=== PATIENT | male | born 1945 | race Caucasian/White ===

== ENCOUNTER 2018-12-07 11:32 | Emergency (ER) | payer OTHER | END 2018-12-07 14:57 | disposition home or self-care (01) | LOC: EDH 11:32 | DX: S16.1XXA Strain of muscle, fascia and tendon at neck level, initial encounter (principal); S50.01XA Contusion of right elbow, initial encounter; Z98.890 Other specified postprocedural states; V09.9XXA Pedestrian injured in unspecified transport accident, initial encounter; Y93.89 Activity, other specified; Y92.89 Other specified places as the place of occurrence of the external cause; Y99.8 Other external cause status | CPT/HCPCS: 70450; 72125; 72128; 73080 ==

== ENCOUNTER 2019-01-16 19:49 | Inpatient (IN) | payer OTHER ==
[~2019-01-16] VITALS: Ht 175.3 cm; Wt 74.0 kg
[~2019-01-16 19:49] MED LIST: AMLO5TAB4 PO; ASPI-1005 PO; CLOP75TA14 PO; L.AC1CAP6 PO; LISI10TA7 PO; SIMV20TA2 PO
[2019-01-16 20:30] LABS: BASOPHILS % (AUTO) 0.2 % (0.0-5.0); EOSINOPHILS % (AUTO) 2.2 % (0.0-8.0); HEMATOCRIT 47.3 % (42-54); MEAN CORPUSCULAR HGB CONC 34.4 g/dL (32.0-36.0); MEAN CORPUSCULAR VOLUME 93.1 fL (79-99); MONOCYTES % (AUTO) 11.7 % (3.0-13.0); NEUTROPHILS % (AUTO) 62.9 % (40.0-77.0); PLATELET COUNT (AUTO) 201 K/uL (130-400); RED BLOOD CELL COUNT(AUTO) 5.08 MIL/uL (4.50-6.20); RED CELL DISTRIBUTION WIDTH 12.6 % (11.0-15.5); WHITE BLOOD COUNT (AUTO) 9.8 K/uL (4.8-10.8)
[2019-01-16 20:43] LABS: CREATININE 0.9 mg/dL (0.5-1.5); POTASSIUM 3.7 mmol/L (3.5-5.1)
[2019-01-16 20:45] LABS: INR 1.02 (0.85-1.15); PROTHROMBIN TIME 10.7 SEC (9.6-11.6)
[2019-01-16 20:47] LABS: ALBUMIN 3.4 g/dL (3.5-5.0); BILIRUBIN,TOTAL 0.5 mg/dL (0.2-1.0); TOTAL PROTEIN, SERUM 7.3 g/dL (6.0-8.3)
[2019-01-16 23:39] LABS: APPEARANCE,URINE Cloudy (CLEAR); BILIRUBIN,URINE Small (NEGATIVE); COLOR,URINE Dark Yellow (YELLOW); GLUCOSE, URINE (UA) Negative (NEGATIVE); KETONES,URINE Trace mg/dL (NEGATIVE); LEUKOCYTE ESTERASE ,URINE Trace (NEGATIVE); NITRATE,URINE Negative (NEGATIVE); OCCULT BLOOD,URINE Negative (NEGATIVE); PROTEIN,URINE POS 1+ mg/dL (NEGATIVE)
[2019-01-16 23:47] LABS: AMPHET/METH SCREEN,URINE NEGATIVE (NEGATIVE); BARBITURATE SCREEN, URINE NEGATIVE (NEGATIVE); BENZODIAZEPINES SCREEN,URINE NEGATIVE (NEGATIVE); CANNABINOID SCREEN,URINE NEGATIVE (NEGATIVE); COCAINE SCREEN,URINE NEGATIVE (NEGATIVE); OPIATE SCREEN,URINE NEGATIVE (NEGATIVE); PHENCYCLIDINE SCREEN,URINE NEGATIVE (NEGATIVE)
[2019-01-16 23:49] LABS: BACTERIA,URINE Few /HPF (None Seen); MUCUS,URINE Many LPF (None Seen); RBC,URINE 0-1 /HPF (0-1); SQUAMOUS EPITHELIAL CELL,UR Moderate /HPF (0-2)
[2019-01-17] VITALS (7 sets, daily range): BP systolic 110–147; BP diastolic 50–72
--- NOTE | 2019-01-17 00:45 | NUR ---
ADMISSION NOTE: Admitted to floor per stretcher from ER. AOx3. Can amb with cane. Denies feeling of discomfort at this time. Positioned in bed comfortably. VS checked and recorded. Assessment done ( See CPOE flow chart for full assessment) Oriented to room and use of call light. Policies and procedures explained. Verbalized understanding. Plan of care initiated. Attached to Telemetry with SR 60's. NVS q4hrs and stroke assessment initiated per protocol. Has IV site to LFA #20 gauge , SL - patent and intact. Pt. kept monitored and observed for any unusualities. Cared for and needs attended.
[2019-01-17 04:00] LABS: CREATINE KINASE, TOTAL 27 U/L (21-232); MYOGLOBIN 47 ng/mL (10-92); TROPONIN I < 0.04 ng/mL (0.00-0.06)
[2019-01-17] MEDS: NITROGLYCERIN 1GM/1 INCH PACKET TD SCH ×3 (06:00→17:47)
[2019-01-17] MEDS: LACTOBACILLUS RHAMNOSUS GG 1 EACH CAP.SPRINK PO SCH (09:21)
[2019-01-17] MEDS: CLOPIDOGREL BISULFATE 75 MG TAB PO SCH (09:21)
[2019-01-17] MEDS: ASPIRIN 325 MG TABLET PO SCH (09:22)
[2019-01-17] MEDS: AMLODIPINE BESYLATE 5 MG TAB PO SCH (09:23)
[2019-01-17] MEDS: LISINOPRIL 10 MG TABLET PO SCH ×2 (09:23→21:16)
[2019-01-17 09:50] LABS: CREATINE KINASE, TOTAL 28 U/L (21-232); MYOGLOBIN 47 ng/mL (10-92); TROPONIN I < 0.04 ng/mL (0.00-0.06)
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
--- NOTE | 2019-01-17 11:24 | NUR ---
DCP CM met with pt discussed dc plans. Pt states he does everything by himself, independent prior to admission, lives at [facility], pt states he's homeless, daughter Abbey Bazan lives in [place] and would like his daughter to come picker packer pt or he can also call his friend pt unable to give friend's phone#. Denies any equipments/services. Offered possible short term placement rehab, at this time pt declined. States he does not want to go to any facility. CM to call daughter to [facility] regarding possibly picking up pt as per pt request. DC plan w/daughter vs [facility] and [facility] vs SNF. CM to cont to follow up. Addendum: 01/17/19 at 1129 by SAMREEN GROSSMAN LVN CM Amended: Links added.
--- NOTE | 2019-01-17 13:07 | NUR ---
CM Note: [facility] pending ins auth and acceptance CM met with pt again as per request. Pt decided he would like to try rehab after hospital. MELINA signed for [facility]. Faxed order, clinicals, PASRR, confirmation received. Spoke to Helga lopez/[facility], will come eval pt. aware poss dcp 48-72hrs, Dr Andino wanted repeat MRI for Tuesday, also made aware pt pending PT eval and treat, will fax notes as soon as available. Pt pending ins auth and acceptance. Primary nurse aware. CM to cont to follow up.
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
--- NOTE | 2019-01-17 17:57 | NUR ---
REPORT GIVEN TO CHELSEA YAO IN PCCU UNIT. PATIENT AWAKE AND ALERT, VOICES NO COMPLAINTS. Addendum: 01/17/19 at 1814 by HAMLET LOPEZ LVN CORRECTION. KODY YAO
[2019-01-17] MEDS: SIMVASTATIN 20 MG TABLET PO SCH (21:16)
[2019-01-18] MEDS: NITROGLYCERIN 1GM/1 INCH PACKET TD SCH ×4 (00:08→18:00)
[2019-01-18 03:40] VITALS: BP 114/49
[2019-01-18 03:51] LABS: BASOPHILS % (AUTO) 0.4 % (0.0-5.0); HEMATOCRIT 42.2 % (42-54); LYMPHOCYTES % (AUTO) 20.6 % (21.0-51.0); MEAN CORPUSCULAR HEMOGLOBIN 32.2 pg (27.0-33.0); MEAN CORPUSCULAR HGB CONC 34.6 g/dL (32.0-36.0); MEAN CORPUSCULAR VOLUME 92.9 fL (79-99); MONOCYTES % (AUTO) 11.1 % (3.0-13.0); NEUTROPHILS % (AUTO) 64.9 % (40.0-77.0); PLATELET COUNT (AUTO) 219 K/uL (130-400); RED BLOOD CELL COUNT(AUTO) 4.54 MIL/uL (4.50-6.20); RED CELL DISTRIBUTION WIDTH 12.9 % (11.0-15.5); WHITE BLOOD COUNT (AUTO) 9.2 K/uL (4.8-10.8)
[2019-01-18 04:03] LABS: CREATININE 1.1 mg/dL (0.5-1.5); POTASSIUM 3.7 mmol/L (3.5-5.1)
[2019-01-18 07:35] VITALS: BP 102/46
[2019-01-18] MEDS: LACTOBACILLUS RHAMNOSUS GG 1 EACH CAP.SPRINK PO SCH (08:08)
[2019-01-18] MEDS: AMLODIPINE BESYLATE 5 MG TAB PO SCH (08:08)
[2019-01-18] MEDS: LISINOPRIL 10 MG TABLET PO SCH ×2 (08:10→21:10)
[2019-01-18] MEDS ORDERED: ASPIRIN 325 MG TABLET ONE (09:10)
--- NOTE | 2019-01-18 09:36 | NUR ---
DYSPHAGIA EVAL COMPLETED. -S/S OF ASPIRATION/PENETRATION OBSERVED. RECOMMEND MECHANICAL SOFT CHOPPED AND THIN LIQUIDS; PILLS WHOLE WITH LIQUID. Addendum: 01/18/[address] SAR[address]H SANTIAGO Amended: Links added.
[2019-01-18] MEDS: ASPIRIN 325 MG TABLET PO SCH (10:27)
[2019-01-18 11:35] VITALS: BP 104/51
[2019-01-18] MEDS: CEFTRIAXONE SODIUM 1 GM IVP SCH (11:40)
[2019-01-18 15:19] VITALS: BP 121/54
[2019-01-18 19:02] VITALS: BP 161/73
[2019-01-18] MEDS: SIMVASTATIN 20 MG TABLET PO SCH (21:10)
[2019-01-18 23:33] VITALS: BP 143/59
[2019-01-19] MEDS: NITROGLYCERIN 1GM/1 INCH PACKET TD SCH ×4 (00:52→18:03)
[2019-01-19 03:52] LABS: HEMATOCRIT 45.2 % (42-54); MEAN CORPUSCULAR HGB CONC 34.4 g/dL (32.0-36.0); PLATELET COUNT (AUTO) 223 K/uL (130-400); RED BLOOD CELL COUNT(AUTO) 4.87 MIL/uL (4.50-6.20); RED CELL DISTRIBUTION WIDTH 12.5 % (11.0-15.5); WHITE BLOOD COUNT (AUTO) 12.9 K/uL (4.8-10.8)
[2019-01-19 04:01] LABS: CREATININE 0.8 mg/dL (0.5-1.5); POTASSIUM 3.5 mmol/L (3.5-5.1)
[2019-01-19 04:15] VITALS: BP 142/60
[2019-01-19 07:55] VITALS: BP 148/71
[2019-01-19] MEDS: AMLODIPINE BESYLATE 5 MG TAB PO SCH (09:35)
[2019-01-19] MEDS: LACTOBACILLUS RHAMNOSUS GG 1 EACH CAP.SPRINK PO SCH (09:35)
[2019-01-19] MEDS: LISINOPRIL 10 MG TABLET PO SCH ×2 (09:35→20:32)
[2019-01-19] MEDS: ASPIRIN 325 MG TABLET PO SCH (09:37)
[2019-01-19] MEDS: CEFTRIAXONE SODIUM 1 GM IVP SCH (10:45)
[2019-01-19 11:35] VITALS: BP 145/65
[2019-01-19] MEDS ORDERED: DOCUSATE SODIUM 100 MG CAP PO ONE (15:01)
[2019-01-19 15:02] VITALS: BP 153/64
[2019-01-19 20:01] VITALS: BP 150/67
[2019-01-19] MEDS: DOCUSATE SODIUM 100 MG CAP PO SCH (20:32)
[2019-01-19] MEDS: SIMVASTATIN 20 MG TABLET PO SCH (20:32)
[2019-01-20] VITALS (8 sets, daily range): BP systolic 106–158; BP diastolic 38–78
[2019-01-20 05:31] LABS: HEMATOCRIT 40.7 % (42-54); MEAN CORPUSCULAR HEMOGLOBIN 32.1 pg (27.0-33.0); MEAN CORPUSCULAR HGB CONC 34.5 g/dL (32.0-36.0); MEAN CORPUSCULAR VOLUME 93.2 fL (79-99); PLATELET COUNT (AUTO) 207 K/uL (130-400); RED BLOOD CELL COUNT(AUTO) 4.36 MIL/uL (4.50-6.20); RED CELL DISTRIBUTION WIDTH 12.4 % (11.0-15.5); WHITE BLOOD COUNT (AUTO) 9.9 K/uL (4.8-10.8)
[2019-01-20 05:49] LABS: CREATININE 0.8 mg/dL (0.5-1.5); POTASSIUM 3.7 mmol/L (3.5-5.1)
[2019-01-20] MEDS: NITROGLYCERIN 1GM/1 INCH PACKET TD SCH ×3 (06:12→11:22)
[2019-01-20] MEDS: LACTOBACILLUS RHAMNOSUS GG 1 EACH CAP.SPRINK PO SCH (07:28)
[2019-01-20] MEDS: DOCUSATE SODIUM 100 MG CAP PO SCH ×2 (07:29→19:42)
[2019-01-20] MEDS: LISINOPRIL 10 MG TABLET PO SCH ×2 (07:29→19:42)
[2019-01-20] MEDS: CEFTRIAXONE SODIUM 1 GM IVP SCH (07:29)
[2019-01-20] MEDS: AMLODIPINE BESYLATE 5 MG TAB PO SCH (07:29)
--- NOTE | 2019-01-20 08:20 | NUR ---
ASSESSMENT PT IS AAOX3 DENIES CP DENIES SOB DENIES NV NO COMPLAINTS, AM MEDS GIVEN. TOLERATED WELL, CALL LIGHT WITHIN REACH.
[2019-01-20] MEDS: CLOPIDOGREL BISULFATE 75 MG TAB PO SCH (08:33)
[2019-01-20] MEDS: ASPIRIN 81MG TAB.CHEW PO SCH (08:34)
--- NOTE | 2019-01-20 11:23 | NUR ---
DENIES CHEST PAIN DOESN'T WANT NITROPASTE
[2019-01-20] MEDS ORDERED: NITROGLYCERIN 0.4 MG SL TAB SL PRN (11:30)
[2019-01-20] MEDS: SIMVASTATIN 20 MG TABLET PO SCH (19:42)
[2019-01-21 00:20] VITALS: BP 143/58
--- NOTE | 2019-01-21 02:56 | NUR ---
Patient a/ox3. Ambulating in room. Denies chest pain. No weakness or deficits with neuro checks.
[2019-01-21 04:18] VITALS: BP 118/58
[2019-01-21 04:31] LABS: HEMATOCRIT 39.3 % (42-54); MEAN CORPUSCULAR HEMOGLOBIN 32.2 pg (27.0-33.0); MEAN CORPUSCULAR HGB CONC 34.8 g/dL (32.0-36.0); MEAN CORPUSCULAR VOLUME 92.5 fL (79-99); PLATELET COUNT (AUTO) 217 K/uL (130-400); RED BLOOD CELL COUNT(AUTO) 4.25 MIL/uL (4.50-6.20); RED CELL DISTRIBUTION WIDTH 12.5 % (11.0-15.5); WHITE BLOOD COUNT (AUTO) 8.1 K/uL (4.8-10.8)
[2019-01-21 04:56] LABS: CREATININE 0.8 mg/dL (0.5-1.5); POTASSIUM 3.4 mmol/L (3.5-5.1)
[2019-01-21] MEDS: DOCUSATE SODIUM 100 MG CAP PO SCH ×2 (07:27→18:15)
[2019-01-21] MEDS: LACTOBACILLUS RHAMNOSUS GG 1 EACH CAP.SPRINK PO SCH (07:27)
[2019-01-21] MEDS: LISINOPRIL 10 MG TABLET PO SCH ×2 (07:27→20:19)
[2019-01-21] MEDS: AMLODIPINE BESYLATE 5 MG TAB PO SCH (07:27)
[2019-01-21] MEDS: CEFTRIAXONE SODIUM 1 GM IVP SCH (07:29)
[2019-01-21] MEDS: CLOPIDOGREL BISULFATE 75 MG TAB PO SCH (07:29)
[2019-01-21] MEDS: ASPIRIN 81MG TAB.CHEW PO SCH (07:29)
[2019-01-21 07:54] VITALS: BP 111/59
--- NOTE | 2019-01-21 08:00 | NUR ---
ASSESSMENT PT IS AAOX3 DENIES CP DENIES SOB DENIES NV NO COMPLAINTS RESTING IN BED. UP TO RESTROOM, NOW IN CHAIR EATING BREAKFAST NO COMPLAINTS. CALL LIGHT WITHIN REACH.
[2019-01-21 11:39] VITALS: BP 136/62
[2019-01-21 15:37] VITALS: BP 141/85
--- NOTE | 2019-01-21 16:30 | NUR ---
STATUS RESTING IN BED, ON THE PHONE WITH DAUGHTER. NO VISIBLE SIGNS OF DISTRESS NOTED. CALL LIGHT WITHIN REACH.
[2019-01-21 19:47] VITALS: BP 138/65
[2019-01-21] MEDS: SIMVASTATIN 20 MG TABLET PO SCH (20:19)
[2019-01-22] VITALS (8 sets, daily range): BP systolic 108–176; BP diastolic 52–80
[2019-01-22] MEDS: LISINOPRIL 10 MG TABLET PO SCH ×2 (09:05→21:00)
[2019-01-22] MEDS: ASPIRIN 81MG TAB.CHEW PO SCH (09:05)
[2019-01-22] MEDS: LACTOBACILLUS RHAMNOSUS GG 1 EACH CAP.SPRINK PO SCH (09:05)
[2019-01-22] MEDS: CLOPIDOGREL BISULFATE 75 MG TAB PO SCH (09:05)
[2019-01-22] MEDS: AMLODIPINE BESYLATE 5 MG TAB PO SCH (09:05)
[2019-01-22] MEDS: DOCUSATE SODIUM 100 MG CAP PO SCH ×2 (09:05→20:43)
[2019-01-22] MEDS ORDERED: POTASSIUM CHLORIDE 20 MEQ ERTAB PO PRN (09:30)
[2019-01-22] MEDS ORDERED: LIDOCAINE HCL-MPF 1% 2ML VIAL IV PRN (09:30)
[2019-01-22] MEDS ORDERED: POTASSIUM CHLORIDE 20MEQ/100ML 100 ML IV PRN (09:30)
[2019-01-22] MEDS ORDERED: POTASSIUM CHLORIDE 10% ELIXIR 20 MEQ/15 ML UDCUP PO PRN (09:30)
--- NOTE | 2019-01-22 09:30 | NUR ---
WARM PRUNE JUICE GIVEN FOR PT. C/O CONSTIPATION.
[2019-01-22 09:31] LABS: BASOPHILS % (AUTO) 0.6 % (0.0-5.0); EOSINOPHILS % (AUTO) 3.2 % (0.0-8.0); HEMATOCRIT 43.5 % (42-54); LYMPHOCYTES % (AUTO) 19.4 % (21.0-51.0); MEAN CORPUSCULAR HGB CONC 34.5 g/dL (32.0-36.0); MEAN CORPUSCULAR VOLUME 92.5 fL (79-99); MONOCYTES % (AUTO) 10.8 % (3.0-13.0); NUCLEATED RED BLOOD CELLS 0.1 % (0.0-0.19); PLATELET COUNT (AUTO) 218 K/uL (130-400); RED CELL DISTRIBUTION WIDTH 12.6 % (11.0-15.5); WHITE BLOOD COUNT (AUTO) 9.9 K/uL (4.8-10.8)
[2019-01-22 09:41] LABS: CREATININE 0.8 mg/dL (0.5-1.5)
[2019-01-22] MEDS: CEFTRIAXONE SODIUM 1 GM IVP SCH (10:08)
--- NOTE | 2019-01-22 12:49 | NUR ---
[facility] MUELLER spoke to Alisa who states they do not show that pt has been there in the last month. She will look back for the year and see if pt has ever stayed with them and recontact Sw. Waiting for response
--- NOTE | 2019-01-22 15:00 | NUR ---
PT. DISAGREES WITH DISCHARGE DISPOSITION. WISHES TO SPEAK WITH [facility] MANAGEMENT.
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
--- NOTE | 2019-01-22 16:41 | NUR ---
RD NOTIFICATION Dx: CVA, Angina. Hx: HTN, DM2, CAD. Diet: Heart Healthy/ Mechanical Soft, fine chopped. Po intake 100% and has great appetite as per pt. Pt stated he has not had a BM in several days and would like a stool softener. Pt stated he is hungry between meals. RD consults due to LOS X 6. RD recommends continue current diet. Recommend stool softener. Offer Glucerna (chocolate) once daily. RD will follow up as needed. Thank you. Kadie Alvarez MS, NICCI Addendum: 01/22/19 at [address] RD Amended: Links added.
[2019-01-22] MEDS ORDERED: LACTULOSE 20 GM/30 ML UDCUP PO PRN (16:45)
[2019-01-22] MEDS ORDERED: LACTULOSE 20 GM/30 ML UDCUP ONE (17:13)
--- NOTE | 2019-01-22 17:14 | NUR ---
MMSE Sw contacted by CM requesting MMSE as requested by daughter who feels pt is not mentally competent to be discharged to [facility] as pt is requesting. Daughter states pt has Alzheimer, but there is no mention of Alzheimer in the medical record. Sw met with pt who was yelling and cussing at me that he was not leaving and we were going to have to throw his ass out and after we did, he was going to micheal my ass. Pt states that he still has burning when he urinates and has not has a BM in 5 days. "I am not ready to go anywhere!" "If you throw me out, you are paying for the taxi and then I am gonna micheal your ass". Pt refuse to let SW speak. ERVIN and CMD spoke to pt and assisted pt to call 800#. Appeal was started. Pt was told by CMD that he would not be discharged today and would be staying another night. Pt continued to rant about suing hospital and CMD. "Your not gonna be able to get a job anywhere after I do". Nurse Aj was informed of Appeal and that pt is staying another night. CMD to notify Dr Rivas as well.
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
--- NOTE | 2019-01-22 17:15 | NUR ---
WARM PRUNE JUICE AND LACTULOSE GIVEN FOR PT. C/O CONTINUED CONSTIPATION.
[2019-01-22] MEDS: SIMVASTATIN 20 MG TABLET PO SCH (20:43)
--- NOTE | 2019-01-22 22:16 | NUR ---
Patient satated "I have to leave this place tomorrow morning. I have a friend Dalton who will take me to where I need to go, but I need a ride to Dalton's house." Patient is getting agitated and moving in and out of the room. traveling secretary asked patient if he could step out from behind the nurses station, patient yelled at her in an aggressive manor. Nursing staff then asked patient to kindly lower his voice and return to his room so other patients would not be disturbed. Patient complied, threatening to micheal this hospital along with 2 others. Patient said he will wait until the morning for case management to set up a ride to Dalton's house.
[2019-01-23 03:54] VITALS: BP 111/63
[2019-01-23 04:31] LABS: BASOPHILS % (AUTO) 0.5 % (0.0-5.0); EOSINOPHILS % (AUTO) 3.3 % (0.0-8.0); HEMATOCRIT 41.9 % (42-54); LYMPHOCYTES % (AUTO) 26.6 % (21.0-51.0); MEAN CORPUSCULAR HEMOGLOBIN 31.4 pg (27.0-33.0); MEAN CORPUSCULAR HGB CONC 34.1 g/dL (32.0-36.0); MEAN CORPUSCULAR VOLUME 92.3 fL (79-99); MONOCYTES % (AUTO) 11.3 % (3.0-13.0); NEUTROPHILS % (AUTO) 58.3 % (40.0-77.0); PLATELET COUNT (AUTO) 217 K/uL (130-400); RED BLOOD CELL COUNT(AUTO) 4.54 MIL/uL (4.50-6.20); RED CELL DISTRIBUTION WIDTH 12.7 % (11.0-15.5); WHITE BLOOD COUNT (AUTO) 9.2 K/uL (4.8-10.8)
[2019-01-23 04:39] LABS: CREATININE 0.8 mg/dL (0.5-1.5); POTASSIUM 3.8 mmol/L (3.5-5.1)
[2019-01-23 07:53] VITALS: BP_SYST 114; BP_SYST 14; BP_DIAS 59
--- NOTE | 2019-01-23 08:10 | NUR ---
RESTING IN BED WITH HOB AT 30 DEGREES, RESP.'S EVEN AND UNLABORED. AAOX3. DENIES ANY C/O SOB, DENIES ANY CURRENT PAIN. ASKED PT. RE:LAST BM, STATES HAS NOT HAD A BOWEL MOVEMENT IN SEVERAL DAYS. SOILED ADULT BRIEF NOTED IN TRASH CAN. A.M. MEDICATIONS ADMINISTERED WELL LACTULOSE AND RATIONALE EXPLAINED TO PT., VERBALIZED UNDERSTANDING. ROOM DOOR OPEN, VISIBLE FROM NURSE'S STATION.
[2019-01-23] MEDS: LISINOPRIL 10 MG TABLET PO SCH ×2 (08:11→20:57)
[2019-01-23] MEDS: CLOPIDOGREL BISULFATE 75 MG TAB PO SCH (08:11)
[2019-01-23] MEDS: DOCUSATE SODIUM 100 MG CAP PO SCH ×2 (08:11→20:57)
[2019-01-23] MEDS: AMLODIPINE BESYLATE 5 MG TAB PO SCH (08:11)
[2019-01-23] MEDS: LACTOBACILLUS RHAMNOSUS GG 1 EACH CAP.SPRINK PO SCH (08:11)
[2019-01-23] MEDS: ASPIRIN 81MG TAB.CHEW PO SCH (08:11)
--- NOTE | 2019-01-23 09:30 | NUR ---
AMBULATED UNASSISTED WITH USE OF CANE TO RESTROOM.
--- NOTE | 2019-01-23 09:43 | NUR ---
Submission to QIO MR Request to submit records to O received via fax. Faxed all requested documents including, but not limited to: IM Letter, DND, Physician orders, Progress notes, Claim Analyst notes, Ancillary Notes, Nurses Notes, CM/SS Notes, Radiology reports, Face Sheet, and QIO fax cover sheet. Total pages faxed = 117 (3 days worth of notes per faxed request.)
[2019-01-23] MEDS: CEFTRIAXONE SODIUM 1 GM IVP SCH (10:04)
--- NOTE | 2019-01-23 10:20 | NUR ---
AMBULATED UNASSISTED WITH USE OF CANE TO RESTROOM.
--- NOTE | 2019-01-23 10:24 | NUR ---
QIO Fax Follow up Fax confirmation received at 1024 w/ JOB# [id number]. CM to continue to follow. CD
[2019-01-23 11:39] VITALS: BP 132/80
--- NOTE | 2019-01-23 15:38 | NUR ---
QIO Follow-up Per QIO webpage, <[email or web address] w/ [email or web address], Documents received at 11:24:42 AM and currently in Clinical Review as of 1:10:02 PM. Updated MOBILE MECHANIC and bedside nurse. CM to continue following.
[2019-01-23 15:41] VITALS: BP 110/60
--- NOTE | 2019-01-23 15:46 | NUR ---
DORA ORDONEZ, IN ROOM SPEAKING WITH PT.
[2019-01-23] MEDS ORDERED: LEVO500T2 PO (16:30)
[2019-01-23 18:57] VITALS: BP 153/54
[2019-01-23] MEDS: SIMVASTATIN 20 MG TABLET PO SCH (20:57)
[2019-01-23 22:57] VITALS: BP 149/75
[2019-01-24 05:58] VITALS: BP 131/61
[2019-01-24 07:28] VITALS: BP 129/50
[2019-01-24] MEDS: LACTOBACILLUS RHAMNOSUS GG 1 EACH CAP.SPRINK PO SCH (09:35)
[2019-01-24] MEDS: AMLODIPINE BESYLATE 5 MG TAB PO SCH (09:36)
[2019-01-24] MEDS: LISINOPRIL 10 MG TABLET PO SCH (09:36)
[2019-01-24] MEDS: DOCUSATE SODIUM 100 MG CAP PO SCH (09:36)
[2019-01-24] MEDS: ASPIRIN 81MG TAB.CHEW PO SCH (09:36)
--- NOTE | 2019-01-24 10:35 | NUR ---
[employer] QIO Decision Per Radha lopez/ [employer], patient has lost the appeal and will be financially liable starting tomorrow.
--- NOTE | 2019-01-24 10:55 | NUR ---
DC Went into room, accompanied by ERVIN to inform patient of result of appeal. Informed patient [employer] denied patient's appeal and will be financially liable starting 01/25/19. Pt stating wants to stay until 01/28/19. Offered to send financial counselor up to room to quote private pay rates from 01/25/19 to 01/28/19. Patient informed of previous winnings of $250,000,000 from [employer]. Pt states will refuse to leave. Again, offered to have a financial counselor talk to patient regarding private pay. Patient then states will go to the fdc in [place] if [facility] pays for the cab and can get a hold of patient's friend, "Dalton". Informed patient multiple attempts made to reach Dalton, but unable to reach Dalton and voicemail is full so no message can be left. Offered to call patient's daughter, Leonor, to inform daughter where patient will be discharged to. Patient agreed. Attempted to call daughter from hospital phone with no answer. Patient called daughter Leonor on personal phone. Leonor answered. CM informed of fdc name ([facility]), address, and phone number. Asked for daughter to provide phone number. Daughter declined and stated, "I am not responsible for him" and declined to provide current phone #. Patient requesting for [facility] to pay for transportation to [facility] [address]" and then to the fdc. Informed patient [facility] will pay for cab from [facility] to fdc only. Suggested patient pay for cab if extra stops need to be made. Patient declined and stated, "If I pay then I take responsibility, but if you [hospital] pay, then you [hospital] are liable. Patient agreed to go straight to [facility] and would try to contact friend Dalton upon arrival. Patient now agreeable for MMSE after speaking to daughter. Rocio sanabria.
--- NOTE | 2019-01-24 10:56 | NUR ---
DCP: [facility] ERVIN and STEPHEN met with pt and informed him that appeal was denied. Pt upset and refusing to leave, "I have 250 million dollars, I can pay to stay here" ERVIN offered to have financial counselor to visit with him and make arrangements. Pt then states "I will go, but you guys will have to pay to get me there". CMD stated that we would make arrangements for taxi and have it paid for. Pt then states "I have to stay here till Jan 28 when I get my check". CMD informed that he has been discharged and will have to private pay if he wants to stay here. Pt again, cussing and states he is not going anywhere". "I am gonna micheal your ass". Pt states that he will go there and have Dalton come get him. We asked pt to call Dalton while we were present. Dalton did not answer and voice mail was full. ERVIN attempted to call daughter at [phone] to notify of dc, daughter did not answer, no voice mail. CMD called daughter from pt's cell and daughter answered. CMD informed of dc to [facility], address and phone #. Daughter refused to give CMD her contact #. supervisor belt and link assembly informed and is making arrangements for taxi. Pt continues to come in and out of room "I am gonna micheal you". "you have not fixed me". Pt wanting to appeal dc again. Pt again informed that Medicare has denied appeal and he has been discharged". Pt currently in room yelling from room that he is going to micheal us".
[2019-01-24] MEDS: CEFTRIAXONE SODIUM 1 GM IVP SCH (11:09)
[2019-01-24] MEDS: CLOPIDOGREL BISULFATE 75 MG TAB PO SCH (11:09)
[2019-01-24] MEDS ORDERED: LEVO500T2 PO (11:24)
[2019-01-24] MEDS ORDERED: LEVO500T89 PO (11:36)
--- NOTE | 2019-01-24 11:50 | NUR ---
GIVEN DISMISSAL INSTRUCTIONS TO PATIENT ALONG WITH SCRIPT FOR [facility] . VERBALIZED UNDERSTANDING. REMOVED TELE PACK, REMOVED IV , SITE WITHOUT REDNESS NOTED. AWAITING FOR TAXI CAB.
--- NOTE | 2019-01-24 11:50 | NUR ---
PATIENT WITH PERSONAL BELONGINGS AWAITING FOR TRANSPORTATION. PATIENT STATES " I'M GLAD I'M GOING TO THAT PLACE SO I CAN GET AWAY FROM MY DAUGHTER."
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
--- NOTE | 2019-01-24 13:35 | NUR ---
[facility] Follow-up Per previous call with [facility], CM requested statement showing patient's appeal had been denied and was informed that the letter would be faxed to [phone]. CM has not received letter. Went to [employer] webpage to printout communication page and noticed a Reconsideration had been filed. Called [employer] to follow-up on this. Informed patient did not inform CM or who was present during the entire conversation of filing a reconsideration. Also informed CM never received a fax or phone call from [employer] notifying of this. Per [employer] placed CM on hold and followed up with patient via cell. Per Annita Bazan, go ahead and continue with appeal. [employer] informed CM that a fax for medical records will not be sent. States a decision will be made by the . Reconsideration case# is [id number]. CM spoke to social problems specialist who verified patient did not inform that a reconsideration had been filed. Notified Mar w/ RM of above.
== END 2019-01-24 12:20 | disposition home or self-care (01) | DRG 64 ==
LOC: EDH 19:49 → EDHIP 23:50 → OBSVTOIN 23:50 → 3CH 01-17 00:24 → 2DH 01-17 18:39
PROVIDERS: ADMIT Internal Medicine Critical Care Medicine; ATTEND Internal Medicine Critical Care Medicine
DX: I63.9 Cerebral infarction, unspecified (principal); I61.9 Nontraumatic intracerebral hemorrhage, unspecified; N39.0 Urinary tract infection, site not specified; E11.9 Type 2 diabetes mellitus without complications; E78.5 Hyperlipidemia, unspecified; I10 Essential (primary) hypertension; K59.00 Constipation, unspecified; I25.119 Atherosclerotic heart disease of native coronary artery with unspecified angina pectoris; Z59.0 Homelessness; Z79.899 Other long term (current) drug therapy; Z86.73 Personal history of transient ischemic attack (TIA), and cerebral infarction without residual deficits; Z91.14 Patient's other noncompliance with medication regimen
CPT/HCPCS: 36415; 70450; 70544; 70551; 71045; 80048; 80053; 80061; 80305; 81001; 82550; 82948; 83690; 83874; 84484; 85025; 85027; 85610; 85730; 92610; 93005; 93306; 93880; 97039; G0378; J0696